=== PATIENT | female | born 1975 | race Caucasian/White ===

== ENCOUNTER 2017-08-15 11:53 | Emergency (ER) | payer SELFPAY ==
[2017-08-15 12:19] VITALS: BP 154/86
[2017-08-15 13:07] LABS: Basophils # (Auto) 0.1 K/mm3 (0.0-0.1); Basophils % (Auto) 0.6 % (0.0-1.8); Eosinophils # (Auto) 0.1 K/mm3 (0.0-0.4); Eosinophils % (Auto) 1.2 % (0.0-4.3); Hematocrit 42.7 % (30.3-42.9); Hemoglobin 14.5 gm/dl (10.1-14.3); Lymphocytes # (Auto) 1.2 K/mm3 (1.2-5.4); Mean Corpuscular HGB Conc 34 % (30-34); Mean Corpuscular Hemoglobin 30 pg (28-32); Mean Corpuscular Volume 90 fl (79-97); Monocytes # (Auto) 0.6 K/mm3 (0.0-0.8); Monocytes % (Auto) 6.6 % (0.0-7.3); Platelet Count 333 K/mm3 (140-440); Red Blood Count 4.77 M/mm3 (3.65-5.03); Red Cell Distribution Width 13.5 % (13.2-15.2)
[2017-08-15 13:27] LABS: BUN/Creatinine Ratio 10; Blood Urea Nitrogen 6 mg/dL (7-17); Calcium 9.4 mg/dL (8.4-10.2); Hemolysis Index 14
[2017-08-15 17:30] LABS: Alanine Aminotransferase 29 units/L (7-56); Albumin 4.4 g/dL (3.9-5)
[2017-08-15 17:31] LABS: Bilirubin,Direct < 0.2 mg/dL (0-0.2)
--- NOTE | 2017-08-15 17:39 | Emergency Department Report ---
Blank Doc - Documentation Documentation: Patient interview with help of fumigator and sterilizer Jenni. Patient reports chest pain for approximately 30 days. Reports chest pain became worse over the last 2 days. Denies travel denies trauma. Denies early family history of coronary artery disease. Denies history of diabetes. Denies history of PE or DVT. Plan laboratory and radiologic evaluation in the ER.
--- NOTE | 2017-08-15 19:07 | XRay Report ---
FINAL REPORT EXAM: XR CHEST ROUTINE 2V HISTORY: Pain TECHNIQUE: Two views of the chest Comparison: None FINDINGS: Heart size is normal. Lungs are clear and well expanded without focal infiltrate or consolidation. No effusion. Bridging osteophytes/syndesmophytes of the thoracic vertebral bodies. The imaged axial skeleton is unremarkable. IMPRESSION: No acute cardiopulmonary disease identified. Larger patient body habitus obscures the lung apices slightly.
[2017-08-15] MEDS ORDERED: NORCO 5/325 PO ONE (20:07)
--- NOTE | 2017-08-15 20:11 | Emergency Department Report ---
<YOANDY PARRISH - Last Filed: 08/17/17 22:43> ED Chest Pain HPI - General Chief Complaint: Chest Pain Stated Complaint: CP Time Seen by Provider: 08/15/17 16:39 Source: patient Mode of arrival: Ambulatory Limitations: Language Barrier - History of Present Illness Initial Comments: This is a 42-year-old female who presents to the ED complaining of epigastric pain for the past 1 month. Patient states that she was seen by her primary care 's about a month ago and was given some antacid medicine. Patient states the symptoms is not gotten better in about the same. Patient states that she was recently diagnosed to have blood pressure medication by her primary care physician which she took yesterday and had an episode of dizziness. Otherwise resolved. Patient states she is able to see either imaging fluids normally. She denies nausea vomiting. - Related Data Previous Rx's Medication Instructions Recorded Last Taken Type EPINEPHrine [Epipen] 0.3 mg IJ ONCE PRN #1 auto.injct 02/22/17 Unknown Rx Naproxen 500 mg PO BID PRN #30 tablet 02/22/17 Unknown Rx diphenhydrAMINE [Benadryl CAP] 25 mg PO Q8HR PRN #30 capsule 02/22/17 Unknown Rx Acetaminophen [Tylenol Extra 500 mg PO TID #30 tablet 08/15/17 Unknown Rx Strength] Famotidine [Pepcid] 20 mg PO BID PRN #30 tablet 08/15/17 Unknown Rx Allergies Allergy/AdvReac Type Severity Reaction Status Date / Time No Known Allergies Allergy Unverified 02/22/17 16:20 ED Review of Systems ROS: Stated complaint: CP Other details as noted in HPI Constitutional: denies: chills, fever Eyes: denies: eye pain, eye discharge, vision change ENT: denies: ear pain, throat pain Respiratory: denies: cough, shortness of breath, wheezing Cardiovascular: denies: chest pain, palpitations Endocrine: no symptoms reported Gastrointestinal: abdominal pain (upper epigastric). denies: nausea, diarrhea Genitourinary: denies: urgency, dysuria, discharge Musculoskeletal: denies: back pain, joint swelling, arthralgia Skin: denies: rash, lesions Neurological: denies: headache, weakness, paresthesias Psychiatric: denies: anxiety, depression Hematological/Lymphatic: denies: easy bleeding, easy bruising ED Past Medical Hx - Past Medical History Hx Hypertension: Yes Hx GERD: Yes - Surgical History Past Surgical History?: No - Social History Smoking Status: Never Smoker Substance Use Type: None - Medications Home Medications: Home Medications Medication Instructions Recorded Confirmed Last Taken Type EPINEPHrine [Epipen] 0.3 mg IJ ONCE PRN #1 auto.injct 02/22/17 Unknown Rx Naproxen 500 mg PO BID PRN #30 tablet 02/22/17 Unknown Rx diphenhydrAMINE [Benadryl CAP] 25 mg PO Q8HR PRN #30 capsule 02/22/17 Unknown Rx Acetaminophen [Tylenol Extra 500 mg PO TID #30 tablet 08/15/17 Unknown Rx Strength] Famotidine [Pepcid] 20 mg PO BID PRN #30 tablet 08/15/17 Unknown Rx ED Physical Exam - General Limitations: Language Barrier General appearance: alert, in no apparent distress - Head Head exam: Present: atraumatic, normocephalic - Eye Eye exam: Present: normal appearance - ENT ENT exam: Present: mucous membranes moist - Neck Neck exam: Present: normal inspection - Respiratory Respiratory exam: Present: normal lung sounds bilaterally. Absent: respiratory distress - Cardiovascular Cardiovascular Exam: Present: regular rate, normal rhythm. Absent: systolic murmur, diastolic murmur, rubs, gallop - GI/Abdominal GI/Abdominal exam: Present: soft, normal bowel sounds. Absent: distended, tenderness, guarding, rebound, rigid, mass, pulsatile mass - Extremities Exam Extremities exam: Present: normal inspection, full ROM - Back Exam Back exam: Present: normal inspection, full ROM - Neurological Exam Neurological exam: Present: alert, oriented X3 - Psychiatric Psychiatric exam: Present: normal affect, normal mood - Skin Skin exam: Present: warm, dry, intact, normal color. Absent: rash ED Course Vital Signs 08/15/17 08/15/17 12:14 20:35 Temperature 98.5 F Pulse Rate 76 84 Respiratory 16 17 Rate Blood Pressure 154/86 O2 Sat by Pulse 94 99 Oximetry CLINT score - Clint Score Age > 65: (0) No Aspirin use within the Past 7 Days: (0) No 3 or more CAD Risk Factors: (0) No 2 or more Angina events in past 24 hrs: (0) No Known CAD with more than 50% Stenosis: (0) No Elevated Cardiac Markers: (0) No ST Deviation Greater than 0.5mm: (0) No CLINT Score: 0 ED Medical Decision Making - Lab Data Result diagrams: 08/15/17 12:55 08/15/17 12:51 Laboratory Last Values WBC 8.6 K/mm3 (4.5-11.0) 08/15/17 12:55 RBC 4.77 M/mm3 (3.65-5.03) 08/15/17 12:55 Hgb 14.5 gm/dl (10.1-14.3) H 08/15/17 12:55 Hct 42.7 % (30.3-42.9) 08/15/17 12:55 MCV 90 fl (79-97) 08/15/17 12:55 MCH 30 pg (28-32) 08/15/17 12:55 MCHC 34 % (30-34) 08/15/17 12:55 RDW 13.5 % (13.2-15.2) 08/15/17 12:55 Plt Count 333 K/mm3 (140-440) 08/15/17 12:55 Lymph % (Auto) 14.0 % (13.4-35.0) 08/15/17 12:55 [place] % (Auto) 6.6 % (0.0-7.3) 08/15/17 12:55 Eos % (Auto) 1.2 % (0.0-4.3) 08/15/17 12:55 Baso % (Auto) 0.6 % (0.0-1.8) 08/15/17 12:55 Lymph # 1.2 K/mm3 (1.2-5.4) 08/15/17 12:55 [place] # 0.6 K/mm3 (0.0-0.8) 08/15/17 12:55 Eos # 0.1 K/mm3 (0.0-0.4) 08/15/17 12:55 Baso # 0.1 K/mm3 (0.0-0.1) 08/15/17 12:55 Seg Neutrophils % 77.6 % (40.0-70.0) H 08/15/17 12:55 Seg Neutrophils # 6.7 K/mm3 (1.8-7.7) 08/15/17 12:55 D-Dimer 188.24 ng/mlDDU (0-234) 08/15/17 16:57 Sodium 136 mmol/L (137-145) L 08/15/17 12:51 Potassium 4.0 mmol/L (3.6-5.0) 08/15/17 12:51 Chloride 96.5 mmol/L (98-107) L 08/15/17 12:51 Carbon Dioxide 26 mmol/L (22-30) 08/15/17 12:51 Anion Gap 18 mmol/L 08/15/17 12:51 BUN 6 mg/dL (7-17) L 08/15/17 12:51 Creatinine 0.6 mg/dL (0.7-1.2) L 08/15/17 12:51 Estimated GFR > 60 ml/min 08/15/17 12:51 BUN/Creatinine Ratio 10 % 08/15/17 12:51 Glucose 100 mg/dL (65-100) 08/15/17 12:51 Calcium 9.4 mg/dL (8.4-10.2) 08/15/17 12:51 Total Bilirubin 0.40 mg/dL (0.1-1.2) 08/15/17 16:57 Direct Bilirubin < 0.2 mg/dL (0-0.2) 08/15/17 16:57 AST 24 units/L (5-40) 08/15/17 16:57 ALT 29 units/L (7-56) 08/15/17 16:57 Alkaline Phosphatase 80 units/L (35-129) 08/15/17 16:57 Troponin T < 0.010 ng/mL (0.00-0.029) 08/15/17 17:11 Total Protein 7.4 g/dL (6.3-8.2) 08/15/17 16:57 Albumin 4.4 g/dL (3.9-5) 08/15/17 16:57 Albumin/Globulin Ratio 1.5 % 08/15/17 16:57 Lipase 31 units/L (13-60) 08/15/17 16:57 - EKG Data EKG shows normal: sinus rhythm Rate: normal - EKG Data Interpretation: normal EKG - Radiology Data Radiology results: report reviewed, image reviewed FINDINGS: Heart size is normal. Lungs are clear and well expanded without focal infiltrate or consolidation. No effusion. Bridging osteophytes/syndesmophytes of the thoracic vertebral bodies. The imaged axial skeleton is unremarkable. IMPRESSION: No acute cardiopulmonary disease identified. Larger patient body habitus obscures the lung apices slightly. Transcribed By: MICHELLE Dictated By: SAAD MAC Electronically Authenticated By: SAAD MAC Signed Date/Time: 08/15/171901 - Medical Decision Making 48-[id number]-year-old female presents with gastritis/GERD. ED course: The patient received medication for pain in ED, CBC, CMP, troponin, chest x-ray. All labs within normal limits. Chest x-ray normal, EKG was normal Discussed his findings with the patient. I discussed the patient to follow up table assembler metal is symptoms persist. Referral was given. Discussed proper diet and avoiding certain foods. Discussed increasing fluids I also discussed the patient to follow up with he primary care physician for further management of her blood pressure medication. Vital signs are normal patient is in no acute distress. Patient was a Kyrgyz-speaking female so there was a dial lathe operator in the room present during to explain all resolves and sure she see patient. Patient understands all instructions given Critical care attestation.: If time is entered above; I have spent that time in minutes in the direct care of this critically ill patient, excluding procedure time. ED Disposition Clinical Impression: Gastritis Qualifiers: Gastritis type: other gastritis Chronicity: chronic Gastritis bleeding: without bleeding Qualified Code(s): K29.50 - Unspecified chronic gastritis without bleeding GERD (gastroesophageal reflux disease) Qualifiers: Esophagitis presence: without esophagitis Qualified Code(s): K21.9 - Gastro- esophageal reflux disease without esophagitis Disposition: -01 TO HOME OR SELFCARE Is pt being admited?: No Does the pt Need Aspirin: No Condition: Stable Instructions: Gastritis (ED), Diet for Ulcers and Gastritis (ED), Gastroesophageal Reflux Disease (ED) Additional Instructions: Make sure to follow up with the primary care physician as discussed. Take all your medications as you've been prescribed. If you have any worsening symptoms or develop new symptoms please return to ED immediately. Prescriptions: Acetaminophen [Tylenol Extra Strength] 500 mg PO TID #30 tablet Famotidine [Pepcid] 20 mg PO BID PRN #30 tablet PRN Reason: Itching Referrals: PRIMARY CARE, [Primary Care Provider] - 3-5 Days [facility] [Provider Group] - 3-5 Days [facility] [Provider Group] - 3-5 Days Forms: Accompanied Note, Work/School Release Form(ED) Time of Disposition: 20:11 Print Language: GEORGIAN <LIAN VEGA - Last Filed: 08/18/17 19:39> Heart Score - HEART Score History: Slightly suspicious EKG: Normal Age: < 45 Risk factors: No known risk factors Troponin: < normal limit HEART Score: 0 CLINT score - Clint Score Age > 65: (0) No Aspirin use within the Past 7 Days: (0) No 3 or more CAD Risk Factors: (0) No 2 or more Angina events in past 24 hrs: (0) No Known CAD with more than 50% Stenosis: (0) No Elevated Cardiac Markers: (0) No ST Deviation Greater than 0.5mm: (0) No CLINT Score: 0 ED Medical Decision Making - Lab Data Result diagrams: 08/15/17 12:55 08/15/17 12:51 ED Disposition Is pt being admited?: No Does the pt Need Aspirin: No
== END 2017-08-15 20:35 | disposition home or self-care (01) ==
LOC: ED 11:53
DX: K29.50 Unspecified chronic gastritis without bleeding (principal); K21.9 Gastro-esophageal reflux disease without esophagitis; I10 Essential (primary) hypertension
CPT/HCPCS: 36415; 71046; 80048; 80074; 83690; 84484; 85025; 85379; 93005; 93010; 99284